=== PATIENT | male | born 1955 | race Caucasian/White ===

== ENCOUNTER 2024-01-02 08:14 | Day surgery (SDC) | payer OTHER, MEDICARE ==
[2024-01-02 08:42] LABS: Absolute Basophils 0.1 K/uL (0-0.5); Absolute Eosinophils 0.2 K/uL (0-0.5); Absolute Lymphocytes (CBC) 1.9 K/uL (0.7-4.9); Absolute Monocytes 0.7 K/uL (0.1-1.3); Absolute Neutrophil 3.4 K/uL (1.8-8.0); Eosinophils % 3.7 % (0-4.4); Hematocrit 47.1 % (39.6-49.0); Hemoglobin 15.9 g/dL (13.6-17.9); Lymphocytes % 29.8 % (15.3-44.8); MCH 31.9 pg (27.0-35.0); MCHC 33.7 g/dL (32.0-36.0); MCV 94.7 fL (80-100); MPV 8.4 fL (7.6-11.3); Monocytes % 11.7 % (3.3-12.3); Neutrophils % 53.8 % (41.7-73.7); Nucleated Red Blood Cells % 0.1 % (0-0); Platelets 244 thou/uL (152-406); RBC Red Blood Cell Count 4.97 M/uL (4.33-5.43); Red Cell Distribution Width 14.7 % (12.1-15.2)
[2024-01-02] MEDS ORDERED: CEFAZOLIN SODIUM 1 GM/VIAL ONE (08:54)
[2024-01-02 08:57] LABS: Anion Gap 4.6 mEq/L (5.0-15.0); Potassium 4.6 mEq/L (3.5-5.1)
--- NOTE | 2024-01-02 09:09 | RAD REPORT ---
EXAM DESCRIPTION: RAD - Chest Pa And Lat (2 Views) - 01/02/2024 9:03 am CLINICAL HISTORY: PRE-OP Chest pain. COMPARISON: No comparisons FINDINGS: The lungs are clear. The heart is normal in size. No displaced fractures. IMPRESSION: No acute or concerning finding suspected.
[2024-01-02] MEDS: Ringers Lactate 1,000 ML IV ONE (09:15)
[2024-01-02] MEDS ORDERED: LIDOCAINE 2% MPF 5 ML VIAL ONE (09:46)
[2024-01-02] MEDS ORDERED: FENTANYL CITR 100 MCG/2 ML ONE (09:46)
[2024-01-02] MEDS ORDERED: propofoL 200 MG/20 ML VIAL IV ONE (09:46)
[2024-01-02] MEDS ORDERED: ONDANSETRON 4 MG/2 ML VIAL ONE (09:46)
[2024-01-02] MEDS ORDERED: ROCURONIUM 50 MG/5 ML VIAL IV ONE (09:46)
[2024-01-02] MEDS ORDERED: dexAMETHasone 10 MG/ML VIAL ONE (10:29)
[2024-01-02] MEDS: CIPROFLOXACIN 400mg IV 400 MG/200 ML BAG IV ONE (10:30)
[2024-01-02] MEDS ORDERED: EPHEDRINE SULF 50 MG/ML VIAL ONE (10:33)
[2024-01-02] MEDS ORDERED: NEOSTIGMINE 1 MG/ML -10 ML VIAL ONE (11:32)
[2024-01-02] MEDS ORDERED: GLYCOPYRROLATE 0.2 MG/ML SYR ONE (11:32)
--- NOTE | 2024-01-02 11:45 | P.BOP ---
Preoperative diagnosis: incarcerated left inguinal hernia Postoperative diagnosis: same Primary procedure: Open repair of incarcerated left inguinal hernia with mesh Estimated blood loss: <10cc Specimen: lipoma of cord Findings: as above Anesthesia: General Complications: None Drain(s): Urinary catheter Implants: large mesh plug and sheet system Transferred to: Recovery Room Condition: Good
[2024-01-02] MEDS: HYDROMORPHONE HCL 1 MG/ML INJ ONE (12:17)
[2024-01-02] MEDS: HYDROCODONE/APAP 10/325 TAB ONE (13:20)
--- NOTE | 2024-01-02 14:05 | EKG ---
Test Date: 2024-01-02 Test Time: 08:39:39 Php Lamp Developer: PREO MEASUREMENT RESULTS: Intervals: Rate: 50 NV: 170 QRSD: 92 QT: 432 QTc: 393 Handley: P: 22 NV: 170 QRS: -17 T: 10 INTERPRETIVE STATEMENTS: Sinus bradycardia Moderate voltage criteria for LVH, may be normal variant Borderline ECG No previous ECG available for comparison Electronically Signed On 01-02-24 14:04:23 CDT by Haider Maguire
[2024-01-02 14:11] VITALS: BP 130/86; TEMP 97.2; O2SAT 99
== END 2024-01-02 13:41 | disposition home or self-care (01) ==
LOC: OR 08:14
PROVIDERS: ATTEND Surgery
PROC: 0YU64JZ Supplement Left Inguinal Region with Synthetic Substitute, Percutaneous Endoscopic Approach (ICD-10-PCS; principal; 2024-01-02 11:30)
DX: K40.30 Unilateral inguinal hernia, with obstruction, without gangrene, not specified as recurrent (principal); I10 Essential (primary) hypertension; Z85.828 Personal history of other malignant neoplasm of skin
CPT/HCPCS: 93005; 85025; 80048; 36415; 88302; 71046; 49507; J2704; J2710; J2001; J3010; J1100; J1170; J2405; J0744; J7120; J0690